=== PATIENT | female | born 1995 | race Caucasian/White ===

== ENCOUNTER 2021-11-09 13:00 | Emergency (ER) | payer OTHER ==
[~2021-11-09] VITALS: Ht 157.5 cm; Wt 49.9 kg
[2021-11-09 13:09] VITALS: BP 123/90
[2021-11-09] MEDS ORDERED: SERT-158 PO (14:09)
[2021-11-09] MEDS ORDERED: CYCL-448 PO (16:03)
== END 2021-11-09 16:09 | disposition home or self-care (01) ==
LOC: EMS 13:00
DX: M54.50 Low back pain, unspecified (principal); M54.6 Pain in thoracic spine; Z86.69 Personal history of other diseases of the nervous system and sense organs
CPT/HCPCS: 72072; 72100; 99284; Z7502

== ENCOUNTER 2022-01-24 09:36 | Emergency (ER) | payer OTHER ==
[~2022-01-24] VITALS: Ht 162.6 cm; Wt 54.5 kg
[~2022-01-24 09:36] MED LIST: CYCL-448 PO; SERT-158 PO
[2022-01-24 11:22] LABS: BASOPHILS % (AUTO) 0.4 % (0.0-2.0); EOSINOPHILS % (AUTO) 0.5 % (1.0-6.0); HEMATOCRIT 38.1 % (36-46); HEMOGLOBIN 13.1 g/dL (12.0-16.0); LYMPHOCYTES # (AUTO) 1.1 K/uL (1.0-4.8); LYMPHOCYTES % (AUTO) 15.2 % (22.0-44.0); MEAN CORPUSCULAR HEMOGLOBIN 30.2 pg (26.0-34.0); MEAN CORPUSCULAR HGB CONC 34.3 G/dL (31.0-37.0); MEAN CORPUSCULAR VOLUME 88 fL (80-100); MONOCYTES # (AUTO) 0.3 K/uL (0.1-1.0); MONOCYTES % (AUTO) 4.5 % (2.0-9.0); NEUTROPHILS # (AUTO) 5.9 K/uL (1.8-7.7); NEUTROPHILS % (AUTO) 79.4 % (40.0-70.0); PLATELET COUNT (AUTO) 294 K/uL (150-450); RED BLOOD CELL COUNT(AUTO) 4.33 MIL/uL (4.00-5.20); RED CELL DISTRIBUTION WIDTH 12.6 % (11.5-14.5)
[2022-01-24 11:38] LABS: ANION GAP 10 mmol/L (8-16); CALCIUM, TOTAL 8.9 mg/dL (8.8-10.5); CARBON DIOXIDE 26 mmol/L (22-29); CHLORIDE 101 mmol/L (98-107); CREATININE 0.73 mg/dL (0.60-1.30); GLUCOSE,RANDOM 102 mg/dL (70-110); POTASSIUM 3.8 mmol/L (3.5-5.1); SODIUM SERUM 137 mmol/L (136-145); UREA NITROGEN, BLOOD 11 mg/dL (7-18)
[2022-01-24 11:39] LABS: GLOMERULAR FILTR. RATE CALC > 60 mL/min (>60)
[2022-01-24 12:05] LABS: ALANINE AMINOTRANSFERASE 17 U/L (12-78); ALBUMIN 3.7 g/dL (3.4-5.0); ALKALINE PHOSPHATASE 71 U/L (46-116); ASPARTATE AMINOTRANSFERASE 16 U/L (15-37); BILIRUBIN,TOTAL 0.3 mg/dL (0.1-1.0); HCG,QUANTITATIVE 28008 mIU/mL (0-6)
[2022-01-24] MEDS ORDERED: IRON1TAB24 PO (13:53)
[2022-01-24 14:22] VITALS: BP 110/75
== END 2022-01-24 14:28 | disposition home or self-care (01) ==
LOC: EMS 09:37
DX: O20.0 Threatened abortion (principal); Z79.899 Other long term (current) drug therapy; Z3A.01 Less than 8 weeks gestation of pregnancy
CPT/HCPCS: 76801; 76817; 80053; 84702; 85025; 86901; 99284

== ENCOUNTER 2025-02-11 21:19 | Emergency (ER) | payer OTHER ==
[~2025-02-11 21:19] MED LIST changes: +IRON1TAB24 PO
== END 2025-02-11 22:16 | disposition left against medical advice (07) ==
LOC: EMS 21:19
DX: M79.646 Pain in unspecified finger(s) (principal); Z53.21 Procedure and treatment not carried out due to patient leaving prior to being seen by health care provider